=== PATIENT | female | born 1975 | race African-American/Black ===

== ENCOUNTER 2017-10-11 16:26 | Emergency (ER) | payer OTHER ==
[2017-10-11 17:03] LABS: #Eosinphils 0.2 thou/uL (0.0-0.7); #Lymphocytes 0.5 thou/uL (1.20-3.40); #Monocytes 0.2 thou/uL (0.11-0.59); #Neutrophils 3.8 thou/uL (1.40-6.50); %Basophils 0.2 % (0.0-1.0); %Lymphocytes 10.8 % (21.0-51.0); %Monocytes 4.2 % (0.0-10.0); %Neutrophils 79.8 % (42.0-75.0); Hemoglobin 12.3 g/dL (12.0-16.0); Mean Corpuscular HGB CONC 33.7 g/dL (32.0-36.0); Mean Corpuscular Hemoglobin 30.9 pg (27.0-31.0); Mean Corpuscular Volume 91.6 fl (81.0-99.0); Mean Platelet Volume 6.8 fL (7.4-10.4); Platelet Count 191 thou/uL (130-400); RBC Distribution Width 11.5 % (11.5-14.5); Red Blood Cell (RBC) Count 3.98 mill/uL (4.20-5.40); White Blood Cell (WBC) Count 4.8 thou/uL (4.8-10.8)
--- NOTE | 2017-10-11 17:23 | RAD ---
PORTABLE CHEST ONE VIEW: 10/11/17 at 4:55 p.m. HISTORY: Chest pain. FINDINGS: Comparison is made with the exam of 10/25/14. The heart size is normal. The lungs are expanded without focal areas of consolidation, pneumothoraces or pleural effusions. IMPRESSION: No radiographic evidence of acute cardiopulmonary process. POS: [facility]
[2017-10-11 17:30] LABS: CKMB 0.6 ng/mL (0-6.6); Troponin I Less than 0.010 ng/mL (< 0.028)
[2017-10-11 17:31] LABS: ALT (SGPT) 13 U/L (8-55); AST (SGOT) 18 U/L (5-34); Albumin 3.6 g/dL (3.5-5.0); Alkaline Phosphatase 46 U/L (40-150); Anion Gap 12 mmol/L (10-20); BUN (Urea Nitrogen) 25 mg/dL (7.0-18.7); Bilirubin, Total 0.5 mg/dL (0.2-1.2); Calc. Creatinine Clearance 0 mL/min (70-130); Calcium 8.5 mg/dL (7.8-10.44); Carbon Dioxide 23 mmol/L (22-29); Chloride 108 mmol/L (98-107); Estimated GFR-MDRD Greater than 90; Globulin 2.7 g/dL (2.4-3.5); Glucose 98 mg/dL (70-105); Potassium 3.6 mmol/L (3.5-5.1); Protein, Total 6.3 g/dL (6.0-8.3); Sodium 139 mmol/L (136-145)
[2017-10-11] MEDS ORDERED: Nitroglycerin 0.4 MG TAB (25 Tab Bottle) ONE (17:55)
[2017-10-11] MEDS ORDERED: Ketorolac Tromethamine 30 MG/ML VIAL ONE (18:25)
[2017-10-11 20:39] LABS: Troponin I Less than 0.010 ng/mL (< 0.028)
== END 2017-10-11 21:24 | disposition home or self-care (01) ==
LOC: ERS 16:26
DX: R07.89 Other chest pain (principal); I10 Essential (primary) hypertension; J45.909 Unspecified asthma, uncomplicated; F32.9 Major depressive disorder, single episode, unspecified; F17.210 Nicotine dependence, cigarettes, uncomplicated; Z79.899 Other long term (current) drug therapy
CPT/HCPCS: 36415; 71045; 80053; 82553; 84484; 85025; 85379; 93005; 96361; 96374; J1885

== ENCOUNTER 2023-05-24 18:18 | Inpatient (IN) | payer OTHER ==
[~2023-05-24 18:18] MED LIST: Iopamidol-370 76% 500 ML MDV (1 ML CHARGE) ONE
[2023-05-24 18:53] LABS: #Eosinphils 0.2 thou/uL (0.0-0.7); #Monocytes 0.7 thou/uL (0.11-0.59); #Neutrophils 9.7 thou/uL (1.40-6.50); %Basophils 0.2 % (0.0-1.0); %Eosinophils 1.8 % (0.0-10.0); %Lymphocytes 12.5 % (21.0-51.0); %Monocytes 5.9 % (0.0-10.0); %Neutrophils 78.9 % (42.0-75.0); Hematocrit 31.3 % (36.0-47.0); Hemoglobin 10.2 g/dL (12.0-16.0); Mean Corpuscular HGB CONC 32.6 g/dL (32.0-36.0); Mean Corpuscular Hemoglobin 26.9 pg (27.0-31.0); Mean Corpuscular Volume 82.6 fl (78.0-98.0); Mean Platelet Volume 8.7 fL (7.4-10.4); Platelet Count 358 10x3/uL (130-400); RBC Distribution Width 16.4 % (11.5-14.5); Red Blood Cell (RBC) Count 3.79 mill/uL (4.20-5.40); White Blood Cell (WBC) Count 12.2 10x3/uL (4.8-10.8)
[2023-05-24 19:15] LABS: Bacteria/HPF None Seen HPF (None Seen); Bilirubin Negative (Negative); Blood, Urine Negative (Negative); CAUTI Indications for Culture Dysuria,urgency,freq; Clarity Clear (Clear); Glucose, Urine (Dipstick) Normal (Negative); Ketone, Urine Negative (Negative); Leukocyte Negative Leu/uL (Negative); Nitrite Negative (Negative); Protein, Urine (Dipstick) Negative (Neg-Trace); RBC/HPF 0-3 HPF (0-3); Squamous Epithelial 0-3 HPF (0-3); Urobilinogen Normal mg/dL (Less than 2); WBC/HPF 0-3 HPF (0-3); pH, Urine 6.5 (5.0-9.0)
[2023-05-24 19:16] LABS: Urine Culture Reflex No No
[2023-05-24 19:19] LABS: ALT (SGPT) 20 U/L (8-55); AST (SGOT) 18 U/L (5-34); Albumin 3.8 g/dL (3.5-5.0); Alkaline Phosphatase 71 U/L (40-110); Anion Gap 13 mmol/L (10-20); BUN (Urea Nitrogen) 21 mg/dL (7.0-18.7); Bilirubin, Total 0.9 mg/dL (0.2-1.2); Calc. Creatinine Clearance 0 mL/min (70-130); Calcium 8.8 mg/dL (7.8-10.44); Carbon Dioxide 20 mmol/L (22-29); Chloride 106 mmol/L (98-107); Estimated GFR 78; Globulin 2.6 g/dL (2.4-3.5); Glucose 90 mg/dL (70-105); Protein, Total 6.4 g/dL (6.0-8.3); Sodium 135 mmol/L (136-145)
[2023-05-24 19:20] LABS: Troponin I Less than 0.010 ng/mL (< 0.028)
[2023-05-24] MEDS ORDERED: Furosemide 40 MG (4 mL) VIAL ONE (19:39)
[2023-05-24] MEDS ORDERED: Acetaminophen 500 MG TAB ONE (21:43)
[2023-05-24] MEDS ORDERED: Ketorolac Tromethamine 30 MG (1 mL) VIAL ONE (23:05)
[2023-05-24] MEDS ORDERED: Fioricet 325/50/40 mg Tablet ONE (23:21)
[2023-05-25] MEDS ORDERED: Ondansetron ODT 4 MG TAB PO PRN (01:25)
[2023-05-25] MEDS ORDERED: Calcium Carbonate 500 MG ChewTAB PO PRN (01:25)
[2023-05-25] MEDS ORDERED: Lorazepam 1 MG TAB PO SCH (01:30)
[2023-05-25] MEDS ORDERED: Lorazepam 1 MG TAB ONE (01:31)
[2023-05-25 02:34] LABS: Amphetamine Not Detected (NotDetected); Barbiturates Screen Not Detected (NotDetected); Benzodiazepine Screen Not Detected (NotDetected); Cocaine Metabolite Screen Not Detected (NotDetected); Methadone Not Detected (NotDetected); Methamphetamine Not Detected (NotDetected); Opiate Screen Not Detected (NotDetected); Oxycodone Screen Not Detected (NotDetected); Phencyclidine (PCP) Not Detected (NotDetected); THC/Cannabinoid Screen Not Detected (NotDetected); Tricyclic Screen Not Detected (NotDetected)
[2023-05-25 02:48] LABS: #Monocytes 0.1 thou/uL (0.11-0.59); #Neutrophils 10.7 thou/uL (1.40-6.50); %Basophils 0.1 % (0.0-1.0); %Lymphocytes 4.4 % (21.0-51.0); %Monocytes 0.6 % (0.0-10.0); %Neutrophils 94.2 % (42.0-75.0); Hematocrit 30.6 % (36.0-47.0); Hemoglobin 9.7 g/dL (12.0-16.0); Mean Corpuscular HGB CONC 31.7 g/dL (32.0-36.0); Mean Corpuscular Hemoglobin 26.8 pg (27.0-31.0); Mean Corpuscular Volume 84.5 fl (78.0-98.0); Mean Platelet Volume 8.9 fL (7.4-10.4); Platelet Count 342 10x3/uL (130-400); RBC Distribution Width 16.3 % (11.5-14.5); Red Blood Cell (RBC) Count 3.62 mill/uL (4.20-5.40); White Blood Cell (WBC) Count 11.4 10x3/uL (4.8-10.8)
[2023-05-25 03:15] LABS: Troponin I Less than 0.010 ng/mL (< 0.028)
[2023-05-25 03:22] LABS: Anion Gap 15 mmol/L (10-20); BUN (Urea Nitrogen) 26 mg/dL (7.0-18.7); Calc. Creatinine Clearance 87 mL/min (70-130); Calcium 8.8 mg/dL (7.8-10.44); Carbon Dioxide 21 mmol/L (22-29); Chloride 104 mmol/L (98-107); Estimated GFR 53; Glucose 212 mg/dL (70-105); Potassium 4.3 mmol/L (3.5-5.1); Sodium 136 mmol/L (136-145)
[2023-05-25 07:13] LABS: Troponin I Less than 0.010 ng/mL (< 0.028)
[2023-05-25] MEDS ORDERED: Albuterol 2.5 MG (3 mL) NEB NEB SCH ×2 (10:00)
[2023-05-25] MEDS ORDERED: Lisinopril 10 MG TAB PO SCH (10:45)
[2023-05-25] MEDS ORDERED: risperiDONE 1 MG TAB PO SCH (10:45)
[2023-05-25] MEDS ORDERED: Escitalopram Oxalate 20 mg Tablet PO SCH (10:45)
[2023-05-25] MEDS ORDERED: Amlodipine 10 MG TAB PO SCH (10:45)
[2023-05-25] MEDS ORDERED: risperiDONE 1 MG TAB ONE (11:07)
[2023-05-25] MEDS ORDERED: Famotidine 20 MG TAB ONE (11:07)
[2023-05-25] MEDS ORDERED: Lisinopril 10 MG TAB ONE (11:07)
[2023-05-25] MEDS ORDERED: Amlodipine 5 MG TAB ONE (11:07)
[2023-05-25] MEDS ORDERED: Albuterol 2.5 MG (0.5 mL) NEB ONE (11:07)
[2023-05-25] MEDS: Famotidine 20 MG TAB PO SCH ×2 (11:20→20:02)
[2023-05-25] MEDS ORDERED: FLU VACC QS2023-24(6MOS UP)/PF 60 MCG/0.5 ML SYRINGE IM ONE (15:30)
[2023-05-25] MEDS: Budesonide 0.5 MG/2 ML NEB INH SCH (18:31)
[2023-05-25] MEDS: Acetaminophen 325 MG TAB PO PRN (19:17)
[2023-05-25] MEDS ORDERED: QUEtiapine 25 MG TAB PO SCH (21:00)
[2023-05-25] MEDS: Albuterol 2.5 MG (3 mL) NEB NEB PRN (22:33)
[2023-05-26] MEDS: Acetaminophen 325 MG TAB PO PRN ×2 (03:00→21:00)
[2023-05-26 05:39] LABS: #Eosinphils 0.1 thou/uL (0.0-0.7); #Monocytes 0.8 thou/uL (0.11-0.59); #Neutrophils 8.5 thou/uL (1.40-6.50); %Basophils 0.3 % (0.0-1.0); %Eosinophils 0.9 % (0.0-10.0); %Lymphocytes 20.2 % (21.0-51.0); %Monocytes 6.3 % (0.0-10.0); %Neutrophils 71.5 % (42.0-75.0); Hematocrit 30.1 % (36.0-47.0); Hemoglobin 9.3 g/dL (12.0-16.0); Mean Corpuscular HGB CONC 30.9 g/dL (32.0-36.0); Mean Corpuscular Hemoglobin 26.6 pg (27.0-31.0); Mean Platelet Volume 9.5 fL (7.4-10.4); Platelet Count 310 10x3/uL (130-400); RBC Distribution Width 16.5 % (11.5-14.5); White Blood Cell (WBC) Count 11.9 10x3/uL (4.8-10.8)
[2023-05-26 05:55] LABS: Anion Gap 11 mmol/L (10-20); BUN (Urea Nitrogen) 29 mg/dL (7.0-18.7); Calc. Creatinine Clearance 78 mL/min (70-130); Calcium 8.2 mg/dL (7.8-10.44); Carbon Dioxide 20 mmol/L (22-29); Chloride 111 mmol/L (98-107); Estimated GFR 68; Glucose 98 mg/dL (70-105); Potassium 4.3 mmol/L (3.5-5.1); Sodium 138 mmol/L (136-145)
[2023-05-26] MEDS ORDERED: Escitalopram Oxalate 20 mg Tablet PO SCH (09:00)
[2023-05-26] MEDS ORDERED: risperiDONE 1 MG TAB PO SCH (09:00)
[2023-05-26] MEDS: Lisinopril 10 MG TAB PO SCH (09:50)
[2023-05-26] MEDS: Amlodipine 10 MG TAB PO SCH (09:51)
[2023-05-26] MEDS: Famotidine 20 MG TAB PO SCH ×2 (09:51→21:00)
[2023-05-26] MEDS: Budesonide 0.5 MG/2 ML NEB INH SCH ×2 (10:09→19:06)
[2023-05-26] MEDS ORDERED: Torsemide 10 MG TAB PO SCH (13:45)
[2023-05-26] MEDS ORDERED: LevoFLOXacin 750 MG TAB PO SCH (14:00)
[2023-05-26] MEDS ORDERED: Azithromycin 500 MG in Sodium Chloride 0.9% 250 ML 250 ML IVPB SCH (14:00)
[2023-05-26] MEDS: Albuterol 2.5 MG (3 mL) NEB NEB PRN (19:08)
[2023-05-27] MEDS: Acetaminophen 325 MG TAB PO PRN ×3 (04:22→21:20)
[2023-05-27] MEDS: LevoFLOXacin 750 MG TAB PO SCH (05:02)
[2023-05-27 06:30] LABS: #Eosinphils 0.3 thou/uL (0.0-0.7); #Monocytes 0.7 thou/uL (0.11-0.59); #Neutrophils 5.5 thou/uL (1.40-6.50); %Basophils 0.3 % (0.0-1.0); %Eosinophils 3.1 % (0.0-10.0); %Monocytes 7.5 % (0.0-10.0); %Neutrophils 60.9 % (42.0-75.0); Hematocrit 31.5 % (36.0-47.0); Hemoglobin 9.8 g/dL (12.0-16.0); Mean Corpuscular HGB CONC 31.1 g/dL (32.0-36.0); Mean Corpuscular Hemoglobin 26.7 pg (27.0-31.0); Mean Corpuscular Volume 85.8 fl (78.0-98.0); Mean Platelet Volume 9.2 fL (7.4-10.4); Platelet Count 323 10x3/uL (130-400); Red Blood Cell (RBC) Count 3.67 mill/uL (4.20-5.40); White Blood Cell (WBC) Count 9.1 10x3/uL (4.8-10.8)
[2023-05-27 06:53] LABS: Anion Gap 15 mmol/L (10-20); BUN (Urea Nitrogen) 24 mg/dL (7.0-18.7); Calc. Creatinine Clearance 68 mL/min (70-130); Calcium 8.7 mg/dL (7.8-10.44); Carbon Dioxide 22 mmol/L (22-29); Chloride 103 mmol/L (98-107); Estimated GFR 57; Glucose 90 mg/dL (70-105); Potassium 4.3 mmol/L (3.5-5.1); Sodium 136 mmol/L (136-145)
[2023-05-27] MEDS: Budesonide 0.5 MG/2 ML NEB INH SCH ×2 (07:27→19:04)
[2023-05-27] MEDS: Torsemide 10 MG TAB PO SCH (09:37)
[2023-05-27] MEDS: Lisinopril 10 MG TAB PO SCH (09:37)
[2023-05-27] MEDS: Famotidine 20 MG TAB PO SCH ×2 (09:37→21:20)
[2023-05-27] MEDS: Amlodipine 10 MG TAB PO SCH (09:37)
[2023-05-27] MEDS: Albuterol 2.5 MG (3 mL) NEB NEB PRN (19:02)
[2023-05-28] MEDS: Acetaminophen 325 MG TAB PO PRN ×2 (05:18→12:06)
[2023-05-28] MEDS: LevoFLOXacin 750 MG TAB PO SCH (05:18)
[2023-05-28 06:49] LABS: #Basophils 0.1 thou/uL (0.0-0.2); #Eosinphils 0.3 thou/uL (0.0-0.7); #Monocytes 0.7 thou/uL (0.11-0.59); #Neutrophils 4.7 thou/uL (1.40-6.50); %Basophils 0.7 % (0.0-1.0); %Eosinophils 3.3 % (0.0-10.0); %Lymphocytes 24.7 % (21.0-51.0); %Monocytes 8.5 % (0.0-10.0); %Neutrophils 61.6 % (42.0-75.0); Hematocrit 34.1 % (36.0-47.0); Hemoglobin 10.5 g/dL (12.0-16.0); Mean Corpuscular HGB CONC 30.8 g/dL (32.0-36.0); Mean Corpuscular Hemoglobin 26.1 pg (27.0-31.0); Mean Corpuscular Volume 84.8 fl (78.0-98.0); Mean Platelet Volume 9.1 fL (7.4-10.4); Platelet Count 315 10x3/uL (130-400); RBC Distribution Width 15.9 % (11.5-14.5); Red Blood Cell (RBC) Count 4.02 mill/uL (4.20-5.40); White Blood Cell (WBC) Count 7.7 10x3/uL (4.8-10.8)
[2023-05-28 07:14] LABS: Anion Gap 14 mmol/L (10-20); BUN (Urea Nitrogen) 23 mg/dL (7.0-18.7); Calc. Creatinine Clearance 64 mL/min (70-130); Calcium 8.5 mg/dL (7.8-10.44); Carbon Dioxide 24 mmol/L (22-29); Chloride 103 mmol/L (98-107); Estimated GFR 59; Glucose 88 mg/dL (70-105); Sodium 137 mmol/L (136-145)
[2023-05-28] MEDS: Budesonide 0.5 MG/2 ML NEB INH SCH (07:35)
[2023-05-28 10:44] VITALS: BP 113/60; TEMP 98.1
[2023-05-28] MEDS: Torsemide 10 MG TAB PO SCH (10:46)
[2023-05-28] MEDS: Amlodipine 10 MG TAB PO SCH (10:46)
[2023-05-28] MEDS: Lisinopril 10 MG TAB PO SCH (10:46)
[2023-05-28] MEDS: Famotidine 20 MG TAB PO SCH (10:47)
== END 2023-05-28 15:45 | disposition home or self-care (01) | DRG 292 ==
LOC: ERS 18:18 → ERHOLD 23:35 → 2NO 05-25 14:51
PROVIDERS: ADMIT Student in an Organized Health Care Education/Training Program; ATTEND Internal Medicine
DX: I13.0 Hypertensive heart and chronic kidney disease with heart failure and stage 1 through stage 4 chronic kidney disease, or unspecified chronic kidney disease (principal); I38 Endocarditis, valve unspecified; N17.9 Acute kidney failure, unspecified; I50.30 Unspecified diastolic (congestive) heart failure; J44.9 Chronic obstructive pulmonary disease, unspecified; Z88.0 Allergy status to penicillin; Z88.8 Allergy status to other drugs, medicaments and biological substances; Z79.899 Other long term (current) drug therapy; N18.9 Chronic kidney disease, unspecified; Z98.51 Tubal ligation status; F17.210 Nicotine dependence, cigarettes, uncomplicated; Z98.890 Other specified postprocedural states; F29 Unspecified psychosis not due to a substance or known physiological condition; E86.0 Dehydration
CPT/HCPCS: 36415; 70450; 71045; 71275; 80048; 80053; 80306; 81001; 83880; 84145; 84484; 85025; 85379; 93005; 93306; 93970; 94640; 94760; 96374; 96375; J1885; J1940; J7611; J7626; Q9967

== ENCOUNTER 2024-03-11 07:32 | Observation (INO) | payer OTHER ==
[2024-03-11] MEDS ORDERED: Ketorolac Tromethamine 30 MG (1 mL) VIAL ONE (08:29)
[2024-03-11] MEDS ORDERED: Lisinopril 10 MG TAB ONE (08:33)
[2024-03-11] MEDS ORDERED: Aspirin Chewable 81 MG TAB ONE (08:57)
[2024-03-11 09:09] LABS: #Basophils Less than 0.03 10x3/uL (0.0-0.2); %Basophils 0.2 % (0.0-1.0); %Eosinophils 1.7 % (0.0-10.0); %Lymphocytes 17.4 % (21.0-51.0); %Monocytes 4.9 % (0.0-10.0); %Neutrophils 75.5 % (42.0-75.0); Hematocrit 36.2 % (36.0-47.0); Hemoglobin 11.9 g/dL (12.0-16.0); Mean Corpuscular HGB CONC 32.9 g/dL (32.0-36.0); Mean Corpuscular Hemoglobin 27.9 pg (27.0-31.0); Mean Platelet Volume 9.4 fL (7.4-10.4); Platelet Count 247 10x3/uL (130-400); RBC Distribution Width 15.1 % (11.5-14.5); Red Blood Cell (RBC) Count 4.26 mill/uL (4.20-5.40)
[2024-03-11 09:24] LABS: ALT (SGPT) 16 U/L (8-55); AST (SGOT) 19 U/L (5-34); Albumin 3.1 g/dL (3.5-5.0); Anion Gap 13 mmol/L (10-20); BHCG - Serum Negative (NEGATIVE); BUN (Urea Nitrogen) 12 mg/dL (7.0-18.7); Bilirubin, Total 0.9 mg/dL (0.2-1.2); Calc. Creatinine Clearance 0 mL/min (70-130); Calcium 8.5 mg/dL (7.8-10.44); Carbon Dioxide 22 mmol/L (22-29); Chloride 106 mmol/L (98-107); Estimated GFR 91; Globulin 3.4 g/dL (2.4-3.5); Glucose 130 mg/dL (70-105); Magnesium 1.2 mg/dL (1.6-2.6); Potassium 3.6 mmol/L (3.5-5.1); Pregs Control Background? CLEAR/WHITE (CLR/WHITE); Pregs Control Bar Appear? YES (CONTROL BAR); Protein, Total 6.5 g/dL (6.0-8.3); Sodium 137 mmol/L (136-145)
[2024-03-11 09:30] LABS: Troponin I 0.018 ng/mL (< 0.028)
[2024-03-11] MEDS ORDERED: Furosemide 40 MG (4 mL) VIAL ONE (10:12)
[2024-03-11] MEDS ORDERED: Magnesium 2 GM/50 ML BAG (IN WATER) ONE (10:13)
[2024-03-11] MEDS ORDERED: Nitroglycerin 0.4 MG TAB (25 Tab Bottle) SL PRN (10:22)
[2024-03-11 11:20] LABS: Alkaline Phosphatase 88 U/L (40-110)
[2024-03-11] MEDS ORDERED: HYDROcodone/Acetaminophen 10/325 mg Tablet PO PRN (11:53)
[2024-03-11] MEDS ORDERED: Morphine 2 MG/ML VIAL SLOW IVP PRN (11:54)
[2024-03-11] MEDS ORDERED: Ondansetron PF 4 MG/2 ML Vial IVP PRN (12:24)
[2024-03-11] MEDS ORDERED: Acetaminophen 325 MG TAB PO PRN (12:24)
[2024-03-11] MEDS ORDERED: Ondansetron ODT 4 MG TAB PO PRN (12:24)
[2024-03-11 13:07] LABS: Troponin I 0.012 ng/mL (< 0.028)
[2024-03-11 13:09] VITALS: BMI 26.3
[2024-03-11] MEDS: Amlodipine 10 MG TAB PO SCH (13:26)
[2024-03-11 15:51] LABS: Amphetamine Not Detected (NotDetected); Barbiturates Screen Not Detected (NotDetected); Benzodiazepine Screen Not Detected (NotDetected); Cocaine Metabolite Screen Detected (NotDetected); Methadone Not Detected (NotDetected); Methamphetamine Not Detected (NotDetected); Opiate Screen Not Detected (NotDetected); Oxycodone Screen Not Detected (NotDetected); Phencyclidine (PCP) Not Detected (NotDetected); THC/Cannabinoid Screen Not Detected (NotDetected); Tricyclic Screen Not Detected (NotDetected)
[2024-03-11 16:04] LABS: Troponin I 0.013 ng/mL (< 0.028)
[2024-03-11] MEDS: Ipratropium/Albuterol 3 ML NEB NEB PRN (17:52)
[2024-03-11] MEDS: HYDROcodone/Acetaminophen 10/325 mg Tablet PO PRN (18:25)
[2024-03-12 05:31] LABS: #Basophils Less than 0.03 10x3/uL (0.0-0.2); %Basophils 0.3 % (0.0-1.0); %Eosinophils 5.2 % (0.0-10.0); %Monocytes 7.8 % (0.0-10.0); %Neutrophils 55.4 % (42.0-75.0); Hematocrit 36.5 % (36.0-47.0); Hemoglobin 11.7 g/dL (12.0-16.0); Mean Corpuscular HGB CONC 32.1 g/dL (32.0-36.0); Mean Corpuscular Hemoglobin 27.5 pg (27.0-31.0); Mean Corpuscular Volume 85.7 fL (78.0-98.0); Mean Platelet Volume 9.7 fL (7.4-10.4); Platelet Count 256 10x3/uL (130-400); RBC Distribution Width 15.2 % (11.5-14.5); Red Blood Cell (RBC) Count 4.26 mill/uL (4.20-5.40)
[2024-03-12 06:11] LABS: Anion Gap 13 mmol/L (10-20); BUN (Urea Nitrogen) 18 mg/dL (7.0-18.7); Calc. Creatinine Clearance 85 mL/min (70-130); Calcium 8.6 mg/dL (7.8-10.44); Carbon Dioxide 23 mmol/L (22-29); Cardiac Risk 2.1 (Less than 4.5); Chloride 103 mmol/L (98-107); Cholesterol 111 mg/dl (< 200 Desired); Estimated GFR 86; Glucose 98 mg/dL (70-105); HDL Cholesterol 53 mg/dL (>60 Neg Risk); LDL Cholesterol, Calculated 41 mg/dL; Potassium 3.6 mmol/L (3.5-5.1); Sodium 135 mmol/L (136-145); Triglycerides 84 mg/dL (Less than 150)
[2024-03-12 08:16] VITALS: TEMP 97.9
[2024-03-12] MEDS ORDERED: hydrALAZINE 20 MG/ML VIAL SLOW IVP PRN (08:32)
[2024-03-12] MEDS: Aspirin Chewable 81 MG TAB PO SCH (08:52)
[2024-03-12] MEDS: Torsemide 10 MG TAB PO SCH (08:52)
[2024-03-12] MEDS: Enoxaparin 40 MG (0.4 mL) SYRINGE SC SCH (08:52)
[2024-03-12] MEDS: Amlodipine 10 MG TAB PO SCH (08:53)
[2024-03-12 12:08] VITALS: BP 136/106
[2024-03-12] MEDS ORDERED: Regadenoson 0.4 MG/5 ML SYRINGE ONE (13:18)
== END 2024-03-12 16:39 | disposition home or self-care (01) ==
LOC: ERS 07:32 → OBS 12:14
PROVIDERS: ADMIT Hospitalist; ATTEND Internal Medicine
PROC: B24BZZZ Ultrasonography of Heart with Aorta (ICD-10-PCS; principal; 2024-03-12)
DX: R07.89 Other chest pain (principal); I10 Essential (primary) hypertension; E11.9 Type 2 diabetes mellitus without complications; E78.5 Hyperlipidemia, unspecified; J44.9 Chronic obstructive pulmonary disease, unspecified; F31.9 Bipolar disorder, unspecified; R79.89 Other specified abnormal findings of blood chemistry; F17.200 Nicotine dependence, unspecified, uncomplicated; Z98.51 Tubal ligation status; Z88.0 Allergy status to penicillin; Z79.51 Long term (current) use of inhaled steroids; Z79.899 Other long term (current) drug therapy
CPT/HCPCS: 36415; 71045; 78452; 80048; 80053; 80061; 80306; 83735; 83880; 84484; 84703; 85025; 93005; 93017; 93306; 94640; 94760; 96365; 96372; 96375; A9500; J1650; J1885; J1940; J2785; J3475; J7620

== ENCOUNTER 2024-05-09 19:33 | Emergency (ER) | payer OTHER ==
[2024-05-09 20:08] LABS: #Basophils Less than 0.03 10x3/uL (0.0-0.2); %Basophils 0.2 % (0.0-1.0); %Eosinophils 3.9 % (0.0-10.0); %Lymphocytes 23.6 % (21.0-51.0); %Monocytes 7.2 % (0.0-10.0); %Neutrophils 64.9 % (42.0-75.0); Hematocrit 30.8 % (36.0-47.0); Hemoglobin 10.5 g/dL (12.0-16.0); Mean Corpuscular HGB CONC 34.1 g/dL (32.0-36.0); Mean Corpuscular Hemoglobin 29.4 pg (27.0-31.0); Mean Corpuscular Volume 86.3 fL (78.0-98.0); Mean Platelet Volume 9.2 fL (7.4-10.4); Platelet Count 217 10x3/uL (130-400); RBC Distribution Width 15.4 % (11.5-14.5); Red Blood Cell (RBC) Count 3.57 mill/uL (4.20-5.40)
[2024-05-09] MEDS ORDERED: Nicotine 14 MG PATCH ONE (20:08)
[2024-05-09 20:34] LABS: ALT (SGPT) 16 U/L (8-55); AST (SGOT) 24 U/L (5-34); Albumin 3.2 g/dL (3.5-5.0); Alkaline Phosphatase 90 U/L (40-110); Anion Gap 13 mmol/L (10-20); BUN (Urea Nitrogen) 14 mg/dL (7.0-18.7); Bilirubin, Total 0.4 mg/dL (0.2-1.2); Calc. Creatinine Clearance 0 mL/min (70-130); Calcium 8.6 mg/dL (7.8-10.44); Carbon Dioxide 20 mmol/L (22-29); Chloride 112 mmol/L (98-107); Estimated GFR 82; Globulin 3.8 g/dL (2.4-3.5); Glucose 118 mg/dL (70-105); Sodium 141 mmol/L (136-145)
[2024-05-09 20:39] LABS: Troponin I 0.015 ng/mL (< 0.028)
== END 2024-05-09 21:33 | disposition home or self-care (01) ==
LOC: ERS 19:33
DX: R06.02 Shortness of breath (principal); J44.9 Chronic obstructive pulmonary disease, unspecified; I13.10 Hypertensive heart and chronic kidney disease without heart failure, with stage 1 through stage 4 chronic kidney disease, or unspecified chronic kidney disease; I50.9 Heart failure, unspecified; N18.9 Chronic kidney disease, unspecified; F17.210 Nicotine dependence, cigarettes, uncomplicated; Z79.899 Other long term (current) drug therapy
CPT/HCPCS: 71045; 80053; 83880; 84484; 85025; 93005; 94640; 94760

== ENCOUNTER 2024-11-07 22:18 | Emergency (ER) | payer OTHER ==
[2024-11-07 23:46] LABS: #Basophils Less than 0.03 10x3/uL (0.0-0.2); #Eosinophils 0.19 10x3/uL (0.0-0.7); #Monocytes 0.58 10x3/uL (0.11-0.59); #Neutrophils 3.91 10x3/uL (1.40-6.50); %Basophils 0.3 % (0.0-1.0); %Eosinophils 2.6 % (0.0-10.0); %Lymphocytes 34.6 % (21.0-51.0); %Monocytes 8.0 % (0.0-10.0); %Neutrophils 54.2 % (42.0-75.0); Hematocrit 36.0 % (36.0-47.0); Hemoglobin 11.4 g/dL (12.0-16.0); Mean Corpuscular Hemoglobin 26.1 pg (27.0-31.0); Mean Corpuscular Volume 82.6 fL (78.0-98.0); Platelet Count 263 10x3/uL (130-400); Red Blood Cell (RBC) Count 4.36 mill/uL (4.20-5.40); White Blood Cell (WBC) Count 7.22 10x3/uL (4.8-10.8)
[2024-11-08 00:07] LABS: Acetaminophen 17 mcg/mL (Less than 10); Salicylate Less than 8.0 mg/dL (Less than 8.0)
[2024-11-08 00:08] LABS: ALT (SGPT) 24 U/L (Less than 34); AST (SGOT) 57 U/L (11-34); Albumin 3.0 g/dL (3.1-4.5); Alkaline Phosphatase 130 U/L (40-110); Anion Gap 13 mmol/L (10-20); BUN (Urea Nitrogen) 22 mg/dL (7.0-18.7); Bilirubin, Total 0.6 mg/dL (0.3-1.2); Calc. Creatinine Clearance 0 mL/min (70-130); Calcium 8.2 mg/dL (7.8-10.44); Carbon Dioxide 22 mmol/L (22-29); Chloride 107 mmol/L (98-107); Globulin 3.3 g/dL (2.4-3.5); Glucose 113 mg/dL (70-105); Potassium 3.6 mmol/L (3.5-5.1); Sodium 138 mmol/L (136-145)
[2024-11-08 00:09] LABS: Troponin I 0.013 ng/mL (< 0.028)
[2024-11-08] MEDS ORDERED: Furosemide 40 MG (4 mL) VIAL ONE (00:51)
[2024-11-08] MEDS ORDERED: Ketorolac Tromethamine 30 MG (1 mL) VIAL ONE (00:51)
== END 2024-11-08 01:09 | disposition home or self-care (01) ==
LOC: ERS 22:18
DX: R60.0 Localized edema (principal); I13.0 Hypertensive heart and chronic kidney disease with heart failure and stage 1 through stage 4 chronic kidney disease, or unspecified chronic kidney disease; I50.9 Heart failure, unspecified; N18.9 Chronic kidney disease, unspecified; J44.9 Chronic obstructive pulmonary disease, unspecified; F17.210 Nicotine dependence, cigarettes, uncomplicated; Z79.899 Other long term (current) drug therapy; Z79.51 Long term (current) use of inhaled steroids
CPT/HCPCS: 36415; 71045; 80053; 80307; 83880; 84484; 85025; 93005; 96374; 96375; J1885; J1940

== ENCOUNTER 2025-01-03 08:18 | Outpatient (CLI) | payer OTHER | END 2025-01-03 08:19 | disposition home or self-care (01) | LOC: RAD 08:18 | PROVIDERS: ATTEND Internal Medicine | DX: R06.00 Dyspnea, unspecified (principal) | CPT/HCPCS: 71046 ==